=== PATIENT | male | born 1960 | race Caucasian/White ===

== ENCOUNTER → 2018-04-25 | Day surgery (SDC) | payer OTHER ==
[~2018-04-25] VITALS: Ht 167.6 cm; Wt 77.6 kg
[~2018-04-25] MED LIST: ASPI-999 PO; HEParin (CATH LAB) 0 ML IV ONE; LIDOCAINE 1% INJ 20 ML 20 ML VIAL ONE; METO-370 PO; NITR0.4T42 SL; NS IV 1000 ML 1,000 ML IV SCH; NS IV 1000 ML 1,000 ML ONE; PANT40TA3 PO
[2018-04-25 08:51] VITALS: BP 129/79
[2018-04-25 09:02] LABS: HEMOGLOBIN 8.5 G/DL (13.3-17.7); MEAN PLATELET VOLUME 9.2 FL (7.4-10.4); RED BLOOD COUNT 4.27 10^6/uL (4.35-5.85); WHITE BLOOD COUNT 9.8 10^3/uL (4.3-11.0)
[2018-04-25 09:17] LABS: PROTHROMBIN TIME PATIENT 13.3 SEC (12.2-14.7)
[2018-04-25 09:23] LABS: ALANINE AMINOTRANSFERASE 26 U/L (0-55); ALBUMIN 4.4 GM/DL (3.2-4.5); ALKALINE PHOSPHATASE 147 U/L (40-136); BILIRUBIN,TOTAL 0.3 MG/DL (0.1-1.0); BUN/CREATININE RATIO 16; CALCIUM 9.2 MG/DL (8.5-10.1); CARBON DIOXIDE 24 MMOL/L (21-32); CHLORIDE 105 MMOL/L (98-107); CHOLESTEROL 241 MG/DL (< 200); CREATININE SERUM 1.07 MG/DL (0.60-1.30); GFR ESTIMATED > 60; GLUCOSE 102 MG/DL (70-105); HDL CHOLESTEROL 41 MG/DL (40-60); POTASSIUM 3.9 MMOL/L (3.6-5.0); SODIUM 138 MMOL/L (135-145); TOTAL PROTEIN 8.1 GM/DL (6.4-8.2); TRIGLYCERIDES 111 MG/DL (<150); VLDL CHOLESTEROL 22 MG/DL (5-40)
--- NOTE | 2018-04-25 10:45 | NUR ---
IN ROOM AND DISCUSSING BLOOD WORK ISSUES,PLAN TO ABORT CATH. CONTACT HAS BEEN MADE WITH MEDICAL DR FOR LOW HEMOGLOBIN WORK UP SOON. IV DC'D , CATH INTACT. AMBULATORY ON DISCHARGE
== END | disposition home or self-care (01) ==
LOC: CATH 08:30
PROVIDERS: ATTEND Internal Medicine Cardiovascular Disease
DX: R07.89 Other chest pain (principal); D64.9 Anemia, unspecified; Z53.09 Procedure and treatment not carried out because of other contraindication; R06.02 Shortness of breath; I11.9 Hypertensive heart disease without heart failure; J44.9 Chronic obstructive pulmonary disease, unspecified; F17.210 Nicotine dependence, cigarettes, uncomplicated; K21.9 Gastro-esophageal reflux disease without esophagitis; Z82.49 Family history of ischemic heart disease and other diseases of the circulatory system; Z79.82 Long term (current) use of aspirin; Z79.899 Other long term (current) drug therapy
CPT/HCPCS: 36415; 80053; 80061; 85027; 85610; 85730; 87081

== ENCOUNTER 2018-05-10 08:06 | Day surgery (SDC) | payer SELFPAY ==
[~2018-05-10] VITALS: Ht 167.6 cm; Wt 77.6 kg
[~2018-05-10 08:06] MED LIST changes: +FLUT1DIS26 IH; -HEParin (CATH LAB) 0 ML IV ONE; -LIDOCAINE 1% INJ 20 ML 20 ML VIAL ONE; -NS IV 1000 ML 1,000 ML IV SCH; -NS IV 1000 ML 1,000 ML ONE
[2018-05-10 08:20] VITALS: BP 128/72
[2018-05-10] MEDS ORDERED: LACTATED RINGERS 1,000 ML IV ONE (08:22)
[2018-05-10] MEDS ORDERED: HURRICAINE EXT TUBE (BENZOCAINE) XX ONE (08:30)
[2018-05-10] MEDS ORDERED: LACTATED RINGERS 1,000 ML IV PRN (08:30)
[2018-05-10] MEDS ORDERED: HURRICAINE EXT TUBE (BENZOCAINE) XX PRN (08:30)
[2018-05-10] MEDS ORDERED: MIDAZOLAM 2 MG/2 ML (VERSED) VIAL ONE (08:33)
[2018-05-10] MEDS ORDERED: proPOfol 200 MG/20 ML (DIPRIVAN) VIAL IV ONE (08:33)
--- NOTE | 2018-05-10 09:06 | Progress Note-Pre Operative ---
Pre-Operative Progress Note H&P Reviewed The H&P was reviewed, patient examined and no changes noted. Time Seen by Provider: 08:59 Date H&P Reviewed: May 10, 2018 Time H&P Reviewed: 09:00 Pre-Operative Diagnosis: Anemia, Chronic Gastritis ARIANE LAWRENCE DO May 10, 2018 09:06
[2018-05-10] MEDS ORDERED: PHENYLEPHRINE 100 MCG/ML 10 ML (ANESTHESIA) SYR ONE (09:15)
--- NOTE | 2018-05-10 09:53 | Progress Note-Post Operative ---
Post-Operative Progess Note Surgeon (s)/Sheet Metal Mechanic (s) Surgeon ARIANE LAWRENCE DO Sheet Metal Mechanic: none Pre-Operative Diagnosis Anemia, Chronic Gastritis Post-Operative Diagnosis Esophagitis, Hiatal Hernia Colon polyps Diverticula Internal Hemorrhoids Procedure & Operative Findings Date of Procedure 05/10/18 Procedure Performed/Findings EGD with bx Colonoscopy with snare Anesthesia Type IV sedation by Anesthesiologist Estimated Blood Loss Estimated blood loss (mL): scant Specimens/Packing Specimens Removed Body of stomach bx Lower Esophageal bx Cecal polyp Rectal Polyp x 2 ARIANE LAWRENCE DO May 10, 2018 09:53
--- NOTE | 2018-05-10 09:54 | Endoscopy Discharge Instruct ---
Endo Procedure/Findings Findings 1.: Hiatal Hernia, Krause's Esophagus 2.: Polyp 3.: Diverticulosis 4.: Internal Hemorrhoids Discharge Instructions - Activity: You might feel a little sleepy until tomorrow. This is due to the medicine you received to relax you. Until tomorrow, you should: NOT drive a car, operate machinery or power tools. NOT drink any alcoholic beverages. NOT make any important decisions or sign importortant papers. Do not return to work until tomorrow, unless otherwise instructed. Resume previous activities tomorrow. Diet: Start by taking liquids. If you tolerate liquids, advance to solid food. make an appointment for 1 week Instructions: 1.: Colonscopy in 3 years, EGD in 6-8 weeks Notify Physician - If you experience excessive bleeding, unusual abdominal pain, fever, or chest pain, contact your doctor immediately. Follow-Up: - I have received and understand the above instructions and will call my doctor if I have any further questions. Patient Signature Date Nurse Signature Other (Relationship) ARIANE LAWRENCE DO May 10, 2018 09:54
[2018-05-10 10:15] VITALS: BP 110/57
[2018-05-10 10:40] VITALS: BP 108/66
[2018-05-10 10:45] VITALS: BP 108/66
--- NOTE | 2018-05-10 11:16 | Anesthesia-General Post-Op ---
MAC Patient Condition Mental Status/LOC: Same as Preop Cardiovascular: Satisfactory Nausea/Vomiting: Absent Respiratory: Satisfactory Pain: Controlled Complications: Absent Post Op Complications Complications None Follow Up Care/Instructions Patient Instructions None needed. Anesthesiology Discharge Order Discharge Order Patient is doing well, no complaints, stable vital signs, no apparent adverse anesthesia problems. No complications reported per nursing. REJI BENNETT CRNA May 10, 2018 11:16
--- NOTE | 2018-05-10 13:08 | OPERATIVE REPORT ---
DATE OF SERVICE: PREOPERATIVE DIAGNOSES: Anemia, chronic gastritis. POSTOPERATIVE DIAGNOSES: 1. Esophagitis, probably Krause's esophagus. 2. Hiatal hernia. 3. Colon polyps. 4. Diverticula. 5. Internal hemorrhoids. PROCEDURES: 1. EGD with biopsy. 2. Colonoscopy with snare polypectomy. SURGEON: Anand Constantino DO. SALES ESTIMATOR: None. ANESTHESIA: IV sedation by the anesthesiologist. SPECIMEN: Two biopsies from the body of the antrum. Circumferential biopsies from the lower esophagus. One cecal polyp and two rectal polyps. BLOOD LOSS: Scant. FLUIDS: Per anesthesia. POSTOPERATIVE CONDITION: Stable. INDICATION FOR PROCEDURE: The patient is a 57-year-old male who has been having some angina, was given a cardiac workup and found to have anemia and needed an upper and lower endoscopy. He also reported a history of chronic gastritis. FINDINGS: The patient had minimal erythema in the stomach, maybe some on the body of the stomach, duodenum okay, but looked like the gastric mucosa had come up at least 6 to 7 cm up past the GE junction. He had diverticula. He had a large, long cecal polyp and then at least four or five polyps in the rectum and sigmoid area, two large ones were removed. PROCEDURE NOTE: After informed consent was obtained, the patient was brought to the endoscopy suite and placed in bed in left lateral decubitus position, administered IV sedation by the anesthesiologist and then monitored his vitals the entire time, heart rate, blood pressure and pulse ox and the scope was inserted down the mouth through the esophagus and into the stomach, looked the antrum was a lot of erythema, pushed into the duodenum, this looked normal. Pulled back and then looked at the body of stomach, may have been a little bit of erythema, elected to do 2 biopsies in the body of the stomach, retroflexed. The patient appeared to have a small hiatal hernia and then pulled the scope back up into the esophagus and it looked like the lower portion of the esophagus about 6 to 7 cm was all gastric mucosa above the GE junction, in the middle of this area, elected to do circumferential biopsies, did 3 biopsies. These were sent to pathology. Pulled back up the esophagus a little bit, took a picture where the esophageal mucosa started and then pulled the scope out of the esophagus and out the mouth. Switched gloves, switched cameras and went below, started the colonoscopy. Pushed the scope in all the way about 140 cm, able to get all the way to cecum, took a picture of the appendiceal orifice on the way in and noted some diverticula and took picture of these. In the cecum after suctioning out of all the fluid, saw a long polyp, elected to do snare polypectomy with cautery, able to remove this in one bite. Took a picture afterward, noted the ileocecal valve and then slowly withdrew the scope insufflating to look circumferentially at the mcelroy, looking at the cecum of the ascending colon to the hepatic flexure, then down the transverse colon, the splenic flexure, into the descending colon down into the sigmoid and towards the end of the sigmoid and the rectum, saw a couple of small polyps. These looked like they may have been hyperplastic, but then there were a couple of larger ones. I elected to remove two of the larger ones with snare polypectomy. These were in the rectum. These were sent to pathology. Then, retroflexed the scope in the rectal vault, saw some internal hemorrhoids, took a picture of this and then removed the scope. The patient tolerated the procedure and he was recovered in the endoscopy suite. Job ID: [id number] DocumentID: [id number] Dictated Date: 05/10/2018 09:59:38 Primary Teaching Assistant Date: 05/10/2018 13:07:59 Dictated By: ANAND CONSTANTINO DO
== END 2018-05-10 10:50 | disposition home or self-care (01) ==
LOC: ENDO 08:06
PROVIDERS: ATTEND Surgery
DX: K22.70 Barrett's esophagus without dysplasia (principal); D12.0 Benign neoplasm of cecum; K62.1 Rectal polyp; K21.0 Gastro-esophageal reflux disease with esophagitis; H44.9 Unspecified disorder of globe; K57.30 Diverticulosis of large intestine without perforation or abscess without bleeding; I25.119 Atherosclerotic heart disease of native coronary artery with unspecified angina pectoris; K64.8 Other hemorrhoids; K29.50 Unspecified chronic gastritis without bleeding; I11.9 Hypertensive heart disease without heart failure; J44.9 Chronic obstructive pulmonary disease, unspecified; I77.89 Other specified disorders of arteries and arterioles; F17.210 Nicotine dependence, cigarettes, uncomplicated